=== PATIENT | female | born 1990 | race African-American/Black ===

== ENCOUNTER 2016-11-27 16:57 | Emergency (ER) | payer MEDICAID ==
[2016-01-29 05:25] VITALS: BMI 34.1
[~2016-11-27 16:57] MED LIST: IBUPROFEN600 MG PO; METHYLDOPA500 MG PO; MOTRIN600 MG PO; PERCOCET 5-3251 TAB PO; PERCOCET 5/3251 TA1 PO; PRENAVITE1 TAB PO
[2016-11-27 17:33] LABS: APPEARANCE CLOUDY (CLEAR); BACTERIA MODERATE /hpf (NONE SEEN); BILIRUBIN NEGATIVE (NEGATIVE); COLOR YELLOW (YELLOW); EPITHELIAL CELLS 25-50 /hpf (0-5); GLUCOSE NEGATIVE (NEGATIVE); KETONE NEGATIVE (NEGATIVE); LEUKOCYTE ESTERASE 1+ (NEGATIVE); NITRITE NEGATIVE (NEGATIVE); PROTEIN NEGATIVE (NEGATIVE); RED CELLS - URINE OCC /hpf (0-5); UROBILINOGEN NORMAL (NORMAL)
[2016-11-27 17:34] LABS: MUCUS <1+ /lpf (NONE SEEN)
== END 2016-11-27 18:01 | disposition home or self-care (01) ==
LOC: D.ER 16:57
PROVIDERS: Emergency Medicine
DX: N76.0 Acute vaginitis (principal); F17.200 Nicotine dependence, unspecified, uncomplicated; I10 Essential (primary) hypertension

== ENCOUNTER 2017-01-01 09:18 | Emergency (ER) | payer MEDICAID ==
[2016-01-29 05:25] VITALS: BMI 34.1
[2017-01-01 11:38] LABS: BASOPHILS 0.4 % (0.0-2.0); EOSINOPHILS 0.4 % (0-7); HEMATOCRIT 32.4 % (36.0-48.0); HEMOGLOBIN 10.4 g/dL (12-16); IMMATURE GRANULOCYTES 0.2 % (0-5); LYMPHOCYTES 27.1 % (15-50); MCH 24.8 pg (26.0-34.0); MCHC 32.1 g/dL (31.0-37.0); MCV 77.1 fL (80.0-100.0); MEAN PLATELET VOLUME 11.2 fL (7.4-10.4); MONOCYTES 6.6 % (2-11); NEUTROPHILS 65.3 % (40-80); RDW 16.7 % (11.5-14.5)
[2017-01-01 11:39] LABS: ALKALINE PHOSPHATASE 78 U/L (46-116); ALT (SGPT) 25 U/L (10-68); CALC OSMOLALITY 274 mosm/kg (275-300); CALCIUM 9.2 mg/dL (8.5-10.1); CARBON DIOXIDE 22.6 mmol/L (21.0-32.0); CHLORIDE - SERUM 105 mmol/L (98-107); CREATININE - SERUM 0.7 mg/dL (0.6-1.3); POTASSIUM - SERUM 4.2 mmol/L (3.5-5.1); PROTEIN - SERUM 7.2 g/dL (6.4-8.2); SODIUM 139 mmol/L (136-145); UREA NITROGEN 8 mg/dL (7-18); eGFR NON AFRICAN AMERICAN > 90 mL/min (90-120)
[2017-01-01 11:40] LABS: PLATELET COUNT 205 10x3/uL (130-400)
[2017-01-01 11:41] LABS: GLUCOSE 86 mg/dL (74-106)
[2017-01-01 12:21] LABS: APPEARANCE CLEAR (CLEAR); COLOR YELLOW (YELLOW)
[2017-01-01 12:24] LABS: BILIRUBIN NEGATIVE (NEGATIVE); GLUCOSE NEGATIVE (NEGATIVE); HCG URINE NEGATIVE (NEGATIVE); KETONE NEGATIVE (NEGATIVE); LEUKOCYTE ESTERASE NEGATIVE (NEGATIVE); NITRITE NEGATIVE (NEGATIVE); PROTEIN NEGATIVE (NEGATIVE); UROBILINOGEN NORMAL (NORMAL)
== END 2017-01-01 15:00 | disposition home or self-care (01) ==
LOC: D.ER 09:18
PROVIDERS: Emergency Medicine; Nurse Practitioner Family
DX: B37.9 Candidiasis, unspecified (principal); N89.8 Other specified noninflammatory disorders of vagina; R11.10 Vomiting, unspecified; K29.00 Acute gastritis without bleeding; I10 Essential (primary) hypertension; F17.200 Nicotine dependence, unspecified, uncomplicated

== ENCOUNTER 2017-01-21 08:16 | Emergency (ER) | payer MEDICAID ==
[2016-01-29 05:25] VITALS: BMI 34.1
[2017-01-21 10:18] LABS: APPEARANCE HAZY (CLEAR); BILIRUBIN NEGATIVE (NEGATIVE); COLOR YELLOW (YELLOW); GLUCOSE NEGATIVE (NEGATIVE); KETONE NEGATIVE (NEGATIVE); LEUKOCYTE ESTERASE 1+ (NEGATIVE); NITRITE NEGATIVE (NEGATIVE); PROTEIN NEGATIVE (NEGATIVE); UROBILINOGEN NORMAL (NORMAL)
[2017-01-21 10:20] LABS: BACTERIA MODERATE /hpf (NONE SEEN); RED CELLS - URINE 0-5 /hpf (0-5)
== END 2017-01-21 10:16 | disposition home or self-care (01) ==
LOC: D.ER 08:16
PROVIDERS: Emergency Medicine
DX: N39.0 Urinary tract infection, site not specified (principal); I10 Essential (primary) hypertension

== ENCOUNTER 2017-03-29 12:27 | Emergency (ER) | payer MEDICAID ==
[2016-01-29 05:25] VITALS: BMI 34.1
[2017-03-29 14:21] LABS: COLOR YELLOW (YELLOW)
[2017-03-29 14:22] LABS: APPEARANCE HAZY (CLEAR); BACTERIA MODERATE /hpf (NONE SEEN); BILIRUBIN NEGATIVE (NEGATIVE); GLUCOSE NEGATIVE (NEGATIVE); KETONE NEGATIVE (NEGATIVE); LEUKOCYTE ESTERASE 1+ (NEGATIVE); NITRITE NEGATIVE (NEGATIVE); PROTEIN NEGATIVE (NEGATIVE); RED CELLS - URINE RARE /hpf (0-5); UROBILINOGEN NORMAL (NORMAL)
[2017-03-29 14:23] LABS: MUCUS >1+ /lpf (NONE SEEN)
== END 2017-03-29 14:54 | disposition home or self-care (01) ==
LOC: D.ER 12:27
PROVIDERS: Physician Assistant
DX: N30.00 Acute cystitis without hematuria (principal); I10 Essential (primary) hypertension

== ENCOUNTER 2017-04-09 11:24 | Emergency (ER) | payer MEDICAID ==
[2016-01-29 05:25] VITALS: BMI 34.1
[2017-04-09 11:52] LABS: HCG URINE POSITIVE (NEGATIVE)
[2017-04-09 11:54] LABS: APPEARANCE HAZY (CLEAR); BILIRUBIN NEGATIVE (NEGATIVE); COLOR YELLOW (YELLOW); GLUCOSE NEGATIVE (NEGATIVE); KETONE NEGATIVE (NEGATIVE); LEUKOCYTE ESTERASE 1+ (NEGATIVE); NITRITE NEGATIVE (NEGATIVE); PROTEIN TRACE mg/dL (NEGATIVE); UROBILINOGEN NORMAL (NORMAL)
[2017-04-09 11:56] LABS: BACTERIA MODERATE /hpf (NONE SEEN); EPITHELIAL CELLS 0-5 /hpf (0-5); MUCUS <1+ /lpf (NONE SEEN); RED CELLS - URINE 0-5 /hpf (0-5); WHITE CELLS - URINE 0-5 /hpf (0-5)
[2017-04-09 12:13] LABS: BASOPHILS 0.4 % (0-2); EOSINOPHILS 1.6 % (0-7); HEMATOCRIT 29.5 % (36.0-48.0); HEMOGLOBIN 9.3 g/dL (12-16); IMMATURE GRANULOCYTES 0.2 % (0-5); LYMPHOCYTES 29.2 % (15-50); MCH 22.9 pg (26.0-34.0); MCHC 31.5 g/dL (31.0-37.0); MCV 72.5 fL (80.0-100.0); MEAN PLATELET VOLUME 10.6 fL (7.4-10.4); MONOCYTES 10.7 % (2-11); NEUTROPHILS 57.9 % (40-80); RBC 4.07 10x6/uL (4.00-5.40); RDW 18.9 % (11.5-14.5); WBC 4.9 10x3/uL (4.8-10.8)
[2017-04-09 12:14] LABS: PLATELET COUNT 257 10x3/uL (130-400)
[2017-04-09 12:21] LABS: CALC OSMOLALITY 272 mosm/kg (275-300); CALCIUM 9.1 mg/dL (8.5-10.1); CARBON DIOXIDE 22.8 mmol/L (21.0-32.0); CHLORIDE - SERUM 105 mmol/L (98-107); CREATININE - SERUM 0.7 mg/dL (0.6-1.3); GLUCOSE 112 mg/dL (74-106); POTASSIUM - SERUM 3.8 mmol/L (3.5-5.1); SODIUM 137 mmol/L (136-145); UREA NITROGEN 8 mg/dL (7-18); eGFR NON AFRICAN AMERICAN > 90 mL/min (90-120)
== END 2017-04-09 13:01 | disposition home or self-care (01) ==
LOC: D.ER 11:24
PROVIDERS: Family Medicine
DX: O02.81 Inappropriate change in quantitative human chorionic gonadotropin (hCG) in early pregnancy (principal); I10 Essential (primary) hypertension

== ENCOUNTER 2017-05-14 03:34 | Emergency (ER) | payer MEDICAID ==
[2016-01-29 05:25] VITALS: BMI 34.1
[2017-05-14 04:40] LABS: BASOPHILS 0.2 % (0-2); EOSINOPHILS 1.1 % (0-7); HEMATOCRIT 31.5 % (36.0-48.0); HEMOGLOBIN 10.2 g/dL (12-16); IMMATURE GRANULOCYTES 0.2 % (0-5); LYMPHOCYTES 25.5 % (15-50); MCH 24.3 pg (26.0-34.0); MCHC 32.4 g/dL (31.0-37.0); MCV 75.2 fL (80.0-100.0); MEAN PLATELET VOLUME 10.4 fL (7.4-10.4); PLATELET COUNT 242 10x3/uL (130-400); RBC 4.19 10x6/uL (4.00-5.40); RDW 19.3 % (11.5-14.5); WBC 6.4 10x3/uL (4.8-10.8)
[2017-05-14 04:52] LABS: HCG SERUM POSITIVE (NEGATIVE)
== END 2017-05-14 06:18 | disposition home or self-care (01) ==
LOC: D.ER 03:34
PROVIDERS: Family Medicine
DX: O20.9 Hemorrhage in early pregnancy, unspecified (principal); Z3A.12 12 weeks gestation of pregnancy; I10 Essential (primary) hypertension

== ENCOUNTER 2018-02-24 09:57 | Emergency (ER) | payer MEDICAID ==
[2016-01-29 05:25] VITALS: BMI 34.1
[2018-02-24 10:47] LABS: BASOPHILS 0.2 % (0-2); EOSINOPHILS 1.2 % (0-7); HEMATOCRIT 38.4 % (36.0-48.0); HEMOGLOBIN 12.4 g/dL (12-16); IMMATURE GRANULOCYTES 0.2 % (0-5); LYMPHOCYTES 33.9 % (15-50); MCH 24.3 pg (26.0-34.0); MCHC 32.3 g/dL (31.0-37.0); MCV 75.3 fL (80.0-100.0); MEAN PLATELET VOLUME 10.6 fL (7.4-10.4); MONOCYTES 7.9 % (2-11); NEUTROPHILS 56.6 % (40-80); PLATELET COUNT 252 10x3/uL (130-400); RDW 17.2 % (11.5-14.5); WBC 5.7 10x3/uL (4.8-10.8)
[2018-02-24 11:04] LABS: ALBUMIN 4.3 g/dL (3.4-5.0); ALKALINE PHOSPHATASE 97 U/L (46-116); ALT (SGPT) 34 U/L (10-68); BILIRUBIN - TOTAL 1.09 mg/dL (0.2-1.3); CALC OSMOLALITY 277 mosm/kg (275-300); CALCIUM 9.8 mg/dL (8.5-10.1); CARBON DIOXIDE 23.5 mmol/L (21.0-32.0); CHLORIDE - SERUM 104 mmol/L (98-107); CREATININE - SERUM 0.8 mg/dL (0.6-1.3); GLUCOSE 91 mg/dL (74-106); PROTEIN - SERUM 8.5 g/dL (6.4-8.2); SODIUM 140 mmol/L (136-145); UREA NITROGEN 10 mg/dL (7-18); eGFR NON AFRICAN AMERICAN > 90 mL/min (90-120)
[2018-02-24 11:05] LABS: HCG URINE NEGATIVE (NEGATIVE)
[2018-02-24 11:13] LABS: APPEARANCE HAZY (CLEAR); BACTERIA MODERATE /hpf (NONE SEEN); BILIRUBIN NEGATIVE (NEGATIVE); COLOR YELLOW (YELLOW); GLUCOSE NEGATIVE (NEGATIVE); KETONE NEGATIVE (NEGATIVE); MUCUS <1+ /lpf (NONE SEEN); NITRITE NEGATIVE (NEGATIVE); PROTEIN NEGATIVE (NEGATIVE); RED CELLS - URINE RARE /hpf (0-5); SPECIFIC GRAVITY 1.015 (1.005-1.020); YEAST >1+ WITH HYPHAE /hpf (NONE SEEN)
== END 2018-02-24 13:33 | disposition home or self-care (01) ==
LOC: D.ER 09:57
PROVIDERS: Emergency Medicine
DX: K42.9 Umbilical hernia without obstruction or gangrene (principal); N39.0 Urinary tract infection, site not specified; I10 Essential (primary) hypertension; F17.200 Nicotine dependence, unspecified, uncomplicated

== ENCOUNTER 2018-05-07 20:52 | Emergency (ER) | payer MEDICAID ==
[~2018-05-07] VITALS: Ht 157.5 cm; Wt 69.9 kg
[2018-05-07 21:05] VITALS: Ht 157.5 cm; Wt 69.9 kg
[2018-05-07 23:13] VITALS: BP 122/67
== END 2018-05-07 23:13 | disposition home or self-care (01) ==
LOC: D.ER 20:52
DX: J02.9 Acute pharyngitis, unspecified (principal); R05 Cough; F17.200 Nicotine dependence, unspecified, uncomplicated

== ENCOUNTER 2018-06-15 20:09 | Emergency (ER) | payer MEDICAID ==
[~2018-06-15] VITALS: Ht 157.5 cm; Wt 59.1 kg
[2018-06-15 20:17] VITALS: Ht 157.5 cm; Wt 59.1 kg
[2018-06-15 21:17] LABS: COLOR YELLOW (YELLOW)
[2018-06-15 21:18] LABS: APPEARANCE CLOUDY (CLEAR); BILIRUBIN NEGATIVE (NEGATIVE); GLUCOSE NEGATIVE (NEGATIVE); KETONE NEGATIVE (NEGATIVE); NITRITE NEGATIVE (NEGATIVE); PROTEIN NEGATIVE (NEGATIVE); SPECIFIC GRAVITY 1.015 (1.005-1.020); UROBILINOGEN NORMAL (NORMAL)
[2018-06-15 21:19] LABS: BACTERIA MODERATE /hpf (NONE SEEN); RED CELLS - URINE 0-5 /hpf (0-5); WHITE CELLS - URINE 0-5 /hpf (0-5)
[2018-06-15 21:20] LABS: HCG URINE NEGATIVE (NEGATIVE)
[2018-06-15] MEDS ORDERED: MACROBID100 MG PO (21:21)
[2018-06-15] MEDS ORDERED: FLAGYL500 MG PO (21:56)
[2018-06-15 22:28] VITALS: BP 143/76
== END 2018-06-15 22:28 | disposition home or self-care (01) ==
LOC: D.ER 20:09
PROVIDERS: Family Medicine
DX: A59.01 Trichomonal vulvovaginitis (principal); N39.0 Urinary tract infection, site not specified; F17.200 Nicotine dependence, unspecified, uncomplicated

== ENCOUNTER 2018-07-24 10:48 | Emergency (ER) | payer MEDICAID ==
[~2018-07-24] VITALS: Ht 157.5 cm; Wt 68.0 kg
[~2018-07-24 10:48] MED LIST changes: +FLAGYL500 MG PO; +MACROBID100 MG PO
[2018-07-24 11:00] VITALS: Ht 157.5 cm; Wt 68.0 kg
[2018-07-24] MEDS ORDERED: MACROBID100 MG PO (11:26)
[2018-07-24] MEDS ORDERED: FLUTICASONE PRO16 GM NASAL (11:26)
[2018-07-24] MEDS ORDERED: FLAGYL500 MG PO (11:26)
[2018-07-24 11:43] LABS: APPEARANCE HAZY (CLEAR); BACTERIA MODERATE /hpf (NONE SEEN); BILIRUBIN NEGATIVE (NEGATIVE); COLOR YELLOW (YELLOW); GLUCOSE NEGATIVE (NEGATIVE); KETONE NEGATIVE (NEGATIVE); MUCUS <1+ /lpf (NONE SEEN); NITRITE NEGATIVE (NEGATIVE); PROTEIN NEGATIVE (NEGATIVE); WHITE CELLS - URINE 0-5 /hpf (0-5)
[2018-07-24 12:20] VITALS: BP 158/062
== END 2018-07-24 12:21 | disposition home or self-care (01) ==
LOC: D.ER 10:48
PROVIDERS: Emergency Medicine
DX: N39.0 Urinary tract infection, site not specified (principal); J30.9 Allergic rhinitis, unspecified; Z20.2 Contact with and (suspected) exposure to infections with a predominantly sexual mode of transmission

== ENCOUNTER 2018-09-02 10:11 | Emergency (ER) | payer MEDICAID ==
[~2018-09-02] VITALS: Ht 157.5 cm; Wt 64.5 kg
[~2018-09-02 10:11] MED LIST changes: +FLUTICASONE PRO16 GM NASAL
[2018-09-02 10:13] VITALS: Ht 157.5 cm; Wt 64.5 kg
[2018-09-02 10:34] LABS: APPEARANCE CLOUDY (CLEAR); BILIRUBIN NEGATIVE (NEGATIVE); COLOR YELLOW (YELLOW); GLUCOSE NEGATIVE (NEGATIVE); KETONE NEGATIVE (NEGATIVE); NITRITE NEGATIVE (NEGATIVE); PROTEIN TRACE mg/dL (NEGATIVE); UROBILINOGEN NORMAL (NORMAL)
[2018-09-02 10:36] LABS: BACTERIA FEW /hpf (NONE SEEN); RED CELLS - URINE 0-5 /hpf (0-5); WHITE CELLS - URINE 0-5 /hpf (0-5)
[2018-09-02] MEDS ORDERED: MIRALAX17 GM PO (11:00)
[2018-09-02 11:36] VITALS: BP 118/82
== END 2018-09-02 11:34 | disposition home or self-care (01) ==
LOC: D.ER 10:11
PROVIDERS: Emergency Medicine
DX: R09.89 Other specified symptoms and signs involving the circulatory and respiratory systems (principal); K59.00 Constipation, unspecified; R10.9 Unspecified abdominal pain; F17.200 Nicotine dependence, unspecified, uncomplicated

== ENCOUNTER 2019-02-19 13:14 | Emergency (ER) | payer MEDICAID ==
[~2019-02-19] VITALS: Ht 157.5 cm; Wt 67.2 kg
[~2019-02-19 13:14] MED LIST changes: +MIRALAX17 GM PO
[2019-02-19 13:28] VITALS: BP 151/84; Ht 157.5 cm; Wt 67.2 kg
[2019-02-19 14:31] LABS: APPEARANCE CLEAR (CLEAR); BILIRUBIN NEGATIVE (NEGATIVE); COLOR STRAW (YELLOW); GLUCOSE NEGATIVE (NEGATIVE); KETONE NEGATIVE (NEGATIVE); NITRITE NEGATIVE (NEGATIVE); PROTEIN NEGATIVE (NEGATIVE); SPECIFIC GRAVITY 1.005 (1.005-1.020); UROBILINOGEN NORMAL (NORMAL)
[2019-02-19 14:55] LABS: HCG URINE NEGATIVE (NEGATIVE)
[2019-02-19 15:59] LABS: ALBUMIN 4.1 g/dL (3.4-5.0); ALKALINE PHOSPHATASE 79 U/L (46-116); ALT (SGPT) 18 U/L (10-68); BILIRUBIN - TOTAL 0.61 mg/dL (0.2-1.3); CALC OSMOLALITY 277 mosm/kg (275-300); CALCIUM 9.6 mg/dL (8.5-10.1); CARBON DIOXIDE 19.4 mmol/L (21.0-32.0); CHLORIDE - SERUM 107 mmol/L (98-107); CREATININE - SERUM 0.7 mg/dL (0.6-1.3); GLUCOSE 74 mg/dL (74-106); POTASSIUM - SERUM 3.9 mmol/L (3.5-5.1); PROTEIN - SERUM 7.9 g/dL (6.4-8.2); SODIUM 141 mmol/L (136-145); UREA NITROGEN 6 mg/dL (7-18); eGFR NON AFRICAN AMERICAN > 90 mL/min (90-120)
[2019-02-19 17:04] LABS: BASOPHILS 0.3 % (0-2); EOSINOPHILS 0.8 % (0-7); HEMATOCRIT 30.3 % (36.0-48.0); HEMOGLOBIN 9.9 g/dL (12-16); IMMATURE GRANULOCYTES 0.3 % (0-5); MCH 23.6 pg (26.0-34.0); MCHC 32.7 g/dL (31.0-37.0); MCV 72.1 fL (80.0-100.0); MONOCYTES 8.1 % (2-11); NEUTROPHILS 53.5 % (40-80); PLATELET COUNT 187 10x3/uL (130-400); RDW 16.4 % (11.5-14.5); WBC 6.2 10x3/uL (4.8-10.8)
[2019-02-22 17:08] LABS: CHLAMYDIA TRACHOMATIS, NAA Negative (Negative)
== END 2019-02-19 18:05 | disposition home or self-care (01) ==
LOC: D.ER 13:14
PROVIDERS: Emergency Medicine
DX: R10.9 Unspecified abdominal pain (principal)

== ENCOUNTER 2019-04-06 11:18 | Emergency (ER) | payer MEDICARE ==
[~2019-04-06] VITALS: Ht 157.5 cm; Wt 65.5 kg
[2019-04-06 11:27] VITALS: Ht 157.5 cm; Wt 65.5 kg
[2019-04-06 12:05] LABS: BASOPHILS 0.2 % (0-2); EOSINOPHILS 0.7 % (0-7); HEMATOCRIT 30.1 % (36.0-48.0); HEMOGLOBIN 9.6 g/dL (12-16); IMMATURE GRANULOCYTES 0.2 % (0-5); LYMPHOCYTES 28.6 % (15-50); MCH 22.3 pg (26.0-34.0); MCHC 31.9 g/dL (31.0-37.0); MEAN PLATELET VOLUME 10.6 fL (7.4-10.4); MONOCYTES 6.5 % (2-11); NEUTROPHILS 63.8 % (40-80); RDW 17.4 % (11.5-14.5); WBC 4.2 10x3/uL (4.8-10.8)
[2019-04-06 12:07] LABS: PLATELET COUNT 313 10x3/uL (130-400)
[2019-04-06 12:20] LABS: APPEARANCE CLEAR (CLEAR); BILIRUBIN NEGATIVE (NEGATIVE); COLOR YELLOW (YELLOW); GLUCOSE NEGATIVE (NEGATIVE); KETONE NEGATIVE (NEGATIVE); NITRITE NEGATIVE (NEGATIVE); PROTEIN NEGATIVE (NEGATIVE); UROBILINOGEN NORMAL (NORMAL)
[2019-04-06 12:22] LABS: ALBUMIN 4.3 g/dL (3.4-5.0); ALKALINE PHOSPHATASE 91 U/L (46-116); ALT (SGPT) 27 U/L (10-68); BILIRUBIN - TOTAL 0.93 mg/dL (0.2-1.3); CALC OSMOLALITY 274 mosm/kg (275-300); CALCIUM 9.5 mg/dL (8.5-10.1); CARBON DIOXIDE 24.2 mmol/L (21.0-32.0); CHLORIDE - SERUM 103 mmol/L (98-107); CREATININE - SERUM 0.9 mg/dL (0.6-1.3); GLUCOSE 89 mg/dL (74-106); POTASSIUM - SERUM 3.7 mmol/L (3.5-5.1); PROTEIN - SERUM 8.4 g/dL (6.4-8.2); SODIUM 139 mmol/L (136-145); UREA NITROGEN 7 mg/dL (7-18); eGFR NON AFRICAN AMERICAN 79 mL/min (90-120)
[2019-04-06 12:25] LABS: HCG URINE NEGATIVE (NEGATIVE)
[2019-04-06 12:28] LABS: AMYLASE - SERUM 59 U/L (25-115); LIPASE 86 U/L (73-393)
[2019-04-06 12:32] LABS: TROPONIN-I < 0.017 ng/mL (0.000-0.060)
[2019-04-06] MEDS ORDERED: GOLYTELY SOLU4000 ML PO (15:21)
[2019-04-06 15:46] VITALS: BP 150/90
== END 2019-04-06 15:46 | disposition home or self-care (01) ==
LOC: D.ER 11:18
PROVIDERS: Family Medicine
DX: K59.00 Constipation, unspecified (principal)

== ENCOUNTER 2019-07-30 16:29 | Emergency (ER) | payer MEDICARE ==
[~2019-07-30] VITALS: Ht 157.5 cm; Wt 65.6 kg
[~2019-07-30 16:29] MED LIST changes: +GOLYTELY SOLU4000 ML PO
[2019-07-30 17:01] VITALS: BP 144/92; Ht 157.5 cm; Wt 65.6 kg
[2019-07-30 17:44] LABS: APPEARANCE CLEAR (CLEAR); BILIRUBIN NEGATIVE (NEGATIVE); COLOR YELLOW (YELLOW); GLUCOSE NEGATIVE (NEGATIVE); KETONE NEGATIVE (NEGATIVE); NITRITE NEGATIVE (NEGATIVE); PROTEIN NEGATIVE (NEGATIVE); UROBILINOGEN NORMAL (NORMAL)
[2019-07-30] MEDS ORDERED: AMOXICILLIN500 M1 PO (17:52)
== END 2019-07-30 18:02 | disposition home or self-care (01) ==
LOC: D.ER 16:29
PROVIDERS: Family Medicine
DX: J02.0 Streptococcal pharyngitis (principal); I10 Essential (primary) hypertension

== ENCOUNTER 2019-10-04 15:24 | Emergency (ER) | payer MEDICARE ==
[~2019-10-04] VITALS: Ht 157.5 cm; Wt 66.0 kg
[~2019-10-04 15:24] MED LIST changes: +AMOXICILLIN500 M1 PO
[2019-10-04 15:49] VITALS: BP 135/75; Ht 157.5 cm; Wt 66.0 kg
== END 2019-10-04 18:53 | disposition left against medical advice (07) ==
LOC: D.ER 15:24
DX: R55 Syncope and collapse (principal)

== ENCOUNTER 2019-12-11 12:15 | Emergency (ER) | payer OTHER, MEDICARE ==
[~2019-12-11] VITALS: Ht 157.5 cm; Wt 67.7 kg
[2019-12-11 12:37] VITALS: BP 158/83; Ht 157.5 cm; Wt 67.7 kg
== END 2019-12-11 15:06 | disposition left against medical advice (07) ==
LOC: D.ER 12:15
DX: R05 Cough (principal); I10 Essential (primary) hypertension

== ENCOUNTER 2021-02-12 12:36 | Emergency (ER) | payer MEDICARE ==
[~2021-02-12] VITALS: Ht 157.5 cm; Wt 74.5 kg
[2021-02-12 12:58] VITALS: BP 162/81; Ht 157.5 cm; Wt 74.5 kg
[2021-02-12 13:21] LABS: BILIRUBIN NEGATIVE (NEGATIVE); KETONE NEGATIVE (NEGATIVE); NITRITE NEGATIVE (NEGATIVE); UROBILINOGEN NORMAL mg/dL (< 2)
[2021-02-12 13:24] LABS: HCG URINE POSITIVE (NEGATIVE)
[2021-02-12] MEDS ORDERED: FLAGYL500 MG PO (18:12)
[2021-02-12] MEDS ORDERED: ZITHROMAX500 MG PO (18:12)
== END 2021-02-12 18:49 | disposition home or self-care (01) ==
LOC: D.ER 12:36
PROVIDERS: Emergency Medicine
DX: N89.8 Other specified noninflammatory disorders of vagina (principal); A64 Unspecified sexually transmitted disease; I10 Essential (primary) hypertension; Z72.0 Tobacco use